=== PATIENT | female | born 1960 | race Hispanic/Latino ===

== ENCOUNTER 2023-05-22 10:12 | Day surgery (SDC) | payer OTHER ==
[~2023-05-22] VITALS: Ht 154.9 cm; Wt 61.2 kg
[2023-05-22] VITALS (14 sets, daily range): BP systolic 118–163; BP diastolic 44–70; PULSE 64–77; RESP 11–22
[~2023-05-22 10:12] MED LIST: 0.9%NACL 1000ML 1,000 ML IV ONE; ATOR40TA71 PO; GEMF600T89 PO; ICOS1CAP PO; INSU100V37 SQ; INSU100V45 SQ; LISI10TA24 PO; PANT40TA54 PO
[2023-05-22] MEDS ORDERED: IOHEXOL-350 50ML VIAL IV ONE (12:09)
[2023-05-22] MEDS ORDERED: INDOMETHACIN 100 MG SUPP.RECT RC ONE (12:30)
[2023-05-22] MEDS ORDERED: GLYCOPYRROLATE 1 MG/5 ML SYRINGE ONE (12:35)
[2023-05-22] MEDS ORDERED: LIDOCAINE PF 100MG/5ML (2%) SYRINGE 5ML ONE (12:35)
[2023-05-22] MEDS ORDERED: PROPOFOL 10 MG/ML 20ML VIAL IV ONE (12:35)
[2023-05-22] MEDS ORDERED: ROCURONIUM 10MG/1ML SYR 10 MG/ML ML ONE (12:36)
[2023-05-22] MEDS ORDERED: FENTANYL CITRATE PF 50 MCG/1 ML 2ML VIAL ONE (12:36)
[2023-05-22] MEDS ORDERED: MIDAZOLAM HCL 1 MG/ML 2ML VIAL ONE (12:42)
[2023-05-22] MEDS ORDERED: LEVOFLOXACIN 500 MG/D5W 100 ML 100 ML ONE (15:18)
[2023-05-22] MEDS ORDERED: ONDANSETRON 4MG INJ ONE ×2 (16:19→16:42)
== END 2023-05-22 17:25 | disposition home or self-care (01) ==
LOC: ENDO 10:12 → DAH 10:12 → ENDO 17:25
PROVIDERS: ATTEND Internal Medicine
DX: T85.890A Other specified complication of nervous system prosthetic devices, implants and grafts, initial encounter (principal); R93.3 Abnormal findings on diagnostic imaging of other parts of digestive tract; K80.51 Calculus of bile duct without cholangitis or cholecystitis with obstruction; K83.8 Other specified diseases of biliary tract; K85.80 Other acute pancreatitis without necrosis or infection; K86.89 Other specified diseases of pancreas; I10 Essential (primary) hypertension; E11.9 Type 2 diabetes mellitus without complications; K21.9 Gastro-esophageal reflux disease without esophagitis; E78.00 Pure hypercholesterolemia, unspecified; E78.1 Pure hyperglyceridemia; M19.90 Unspecified osteoarthritis, unspecified site; Z79.01 Long term (current) use of anticoagulants; Z79.899 Other long term (current) drug therapy; Z90.710 Acquired absence of both cervix and uterus; Z98.891 History of uterine scar from previous surgery; Z90.49 Acquired absence of other specified parts of digestive tract; Y83.8 Other surgical procedures as the cause of abnormal reaction of the patient, or of later complication, without mention of misadventure at the time of the procedure
CPT/HCPCS: 43276; 82948; 88305 ×2; 88112; 74328; 43264; 43273; 43237; J3010; J3490; J1956; J7030 ×2; J2001; J2250; J2704; J2405 ×2; Q9967; A4649; A4215 ×2; A4223; A4657; A7002; A4222; A4221; A4663; A4606; C2625; C1769; C1773; 74330

== ENCOUNTER 2023-08-12 08:00 | Day surgery (SDC) | payer OTHER ==
[2023-08-12] VITALS (17 sets, daily range): BP systolic 124–156; BP diastolic 58–75; PULSE 66–80; RESP 14–19
[~2023-08-12] VITALS: Ht 154.9 cm; Wt 59.0 kg
[~2023-08-12 08:00] MED LIST changes: -0.9%NACL 1000ML 1,000 ML IV ONE; -ATOR40TA71 PO; +DAPA1TAB4 PO; +ERGO500093 PO; +EZET10TA48 PO; -INSU100V37 SQ; -INSU100V45 SQ; +OMEP40CA21 PO; -PANT40TA54 PO; +ROSU20TA73 PO
[2023-08-12] MEDS ORDERED: 0.9%NACL 1000ML 1,000 ML IV ONE (08:41)
[2023-08-12] MEDS ORDERED: FENTANYL CITRATE PF 50 MCG/1 ML 2ML VIAL ONE (11:44)
[2023-08-12] MEDS ORDERED: SUCCINYLCHOLINE CHLORIDE 20 MG/ML 10 ML VIAL ONE (11:44)
[2023-08-12] MEDS ORDERED: PROPOFOL 10 MG/ML 20ML VIAL IV ONE (11:44)
[2023-08-12] MEDS: INDOMETHACIN 100 MG SUPP.RECT RC ONE (11:58)
[2023-08-12] MEDS: ONDANSETRON 4MG INJ ONE ×2 (13:26→14:11)
== END 2023-08-12 14:45 | disposition home or self-care (01) ==
LOC: ENDO 08:00 → DAH 08:00 → ENDO 14:45
PROVIDERS: ATTEND Internal Medicine Gastroenterology
DX: Z46.59 Encounter for fitting and adjustment of other gastrointestinal appliance and device (principal); R93.2 Abnormal findings on diagnostic imaging of liver and biliary tract; K80.51 Calculus of bile duct without cholangitis or cholecystitis with obstruction; K86.89 Other specified diseases of pancreas; I10 Essential (primary) hypertension; E11.9 Type 2 diabetes mellitus without complications; E78.1 Pure hyperglyceridemia; M19.90 Unspecified osteoarthritis, unspecified site; E78.00 Pure hypercholesterolemia, unspecified; Z90.710 Acquired absence of both cervix and uterus; Z90.49 Acquired absence of other specified parts of digestive tract; Z98.890 Other specified postprocedural states
CPT/HCPCS: 43261; 82948 ×2; 88305; 88112; 74328; 43264; 43275; 43273; J3010; J0330; J7030 ×2; J2704; J2405 ×2; A4649; A4620; A4215; A4223; A7002; A4222; A4221; A4663; A4606; C1769; C1773; 74330; J3490